=== PATIENT | male | born 1955 | race Caucasian/White ===

== ENCOUNTER 2025-07-10 13:12 | Outpatient (AMB) | payer MEDICARE, SELFPAY ==
--- NOTE | 2025-07-10 13:31 | MHC.OFFVIS ---
Intake Visit Reasons: 6M BET Allergies No Known Allergies Allergy (Verified 07/10/25 13:34) Medication List - Last Reconciled 07/10/25 by Felicia Umana CNP apixaban (Eliquis) 5 mg PO BID ergocalciferol (vitamin D2) 1,250 mcg PO QWEEK escitalopram oxalate 5 mg PO BEDTIME levothyroxine 125 mcg PO DAILY propranolol 10 mg PO BID tamsulosin 0.4 mg PO BEDTIME HPI Comments Details: 69-year-old man with ulcerative colitis s/p total colectomy and s/p iliostomy, DVT, and urinary retention was here for tremor. He denied any h/o alcohol abuse. He has been treated with steroids in the past and hand shaking has been noted since 2022 or before. It was noted more when he used hands. Tremor got better when off steroids.?Because of Eliquis, he could not take primidone and was given propanolol. He was doing okay. Tremor was better with propranolol. No significant functional impairment. No difficulty eating, drinking, or swallowing. [facility] Medical History (Updated 07/10/25 @ 13:34 by Felicia Umana CNP) Tremor Review of Systems Const Denies chills, Denies daytime sleepiness, Denies difficulty sleeping, Denies fatigue, Denies fever(s), Denies frequent falls, Denies headache(s), Denies increased appetite, Denies poor appetite, Denies snoring, Denies weakness, Denies weight gain and Denies weight loss Eyes Denies loss of vision ENT Denies vertigo, Denies dizziness and Denies headache(s) Card Denies chest pain at rest, Denies chest pain with activity, Denies syncope, Denies leg edema and Denies palpitations Resp Denies snoring GI Denies constipation, Denies heartburn, Denies diarrhea and Denies nausea Denies urinary frequency, Denies urinary incontinence and Denies urinary urgency Musc Denies abnormal gait, Denies numbness and Denies tingling Skin/Breast Denies dry skin and Denies rash Neuro Denies abnormal gait, Denies vertigo, Denies dizziness, Denies syncope, Denies frequent falls, Denies headache(s), Denies lack of coordination, Denies loss of vision, Denies memory loss, Denies numbness, Denies restless legs, Denies seizure-like activity, Denies tingling, Denies paresthesias, Reports tremor(s) and Denies weakness Psych Denies anxiety, Denies depression, Denies auditory hallucinations, Denies memory loss, Denies visual hallucinations and Denies suicidal ideation Endo Denies fatigue and Denies palpitations Physical Exam Const Other: General Appearance:? normal, in no acute distress. Skin:? no rashes, no significant birthmarks. Heart:? S1, S2 normal, no murmurs. Lungs:? clear anteriorly and posteriorly. Extremities:? no edema. Psych:? alert, oriented, cognitive function intact, cooperative with exam. Neuro Other: Mental Status:?Normal attention, orientation, memory and affect.? Cranial Nerves:?Pupils are equal, round and reactive to light. External occular muscles are intact. Visual melissa are full. Face is symmetrical. Facial sensations are normal. Tongue is midline. Palate elevates symmetrically. Shoulder shrugging is normal. Hearing to bedside conversation is normal. Motor Examination:?DTRs 1+ Sensory Exam:?....? Coordination:?No ataxia,?no titubation.? Gait Exam: Within normal limits. Cerebellar Signs:?[id number] with bilateral hand tremor. Extrapyramidal System:?No tremor, rigidity with normal facial expressions.? Pronator Drift:?Not present.? Involuntary Movements:?Mod hand postural tremor. Speech:?Normal.? Assessment & Plan Assessment & Plan (1) Benign essential tremor: Code(s): G25.0 - Essential tremor Category: Medical Plan: Continue propranolol 10mg 1 tablet twice a day. Follow up in 6 months or sooner as needed. Coding Level of Care Code Est Pt Level 4 (68834) Diagnoses Benign essential tremor G25.0
--- OUTSIDE RECORDS SUMMARY | 2025-07-10 17:18 | XMS_ITS | Clinical Summary ---
Author Organization [facility] Address [address] [place] [address] Phone Care Team Providers Care Central Supply Assistant Name Role Phone Alanna Segal Primary Care Provider [phone] Allergies No known active allergies Medications levothyroxine (SYNTHROID, LEVOTHROID) 125 MCG tablet Take 125 mcg by mouth 1 (one) time each day Active tamsulosin (FLOMAX) 0.4 MG 24 hr capsule Take 0.4 mg by mouth 1 (one) time each day Active ergocalciferol 1.25 MG (74749 UT) capsule Take 50,000 Units by mouth 1 (one) time per week Active escitalopram (LEXAPRO) 5 MG tablet Take 5 mg by mouth 1 (one) time each day Active apixaban (Eliquis) 5 MG tablet Take 5 mg by mouth in the morning and 5 mg in the evening. Active propantheline (PROBANTHINE) 15 MG tablet Take 10 mg by mouth in the morning and 10 mg at noon and 10 mg in the evening and 10 mg before bedtime. 10mg. Active Active Problems Problem Noted Date Diagnosed Date Stage 3a chronic kidney disease 12/12/2024 Renal stone 06/13/2024 Ulcerative colitis Resolved Problems Problem Noted Date Diagnosed Date Resolved Date Chronic kidney disease 12/12 Encounters Date Type Department Care Team Description 04/29/2025 Orders Only [facility] [address] [place] [address] Yusuf Yadav MD Renal stone; Stage 3a chronic kidney disease (HCC) from Last 3 Months Family History Medical History Relation Comments Heart attack Mother myocardial infarc Sister Relation Status Comments Brother Father Mother Sister Alive Social History Tobacco Use Types Packs/Day Years Used Date Smoking Tobacco: Never Assessed Sex and Gender Information Value Date Recorded Sex Assigned at Not on file Legal Sex Male 6:56 PM EDT Gender Identity Not on file Sexual Orientation Not on file Last Filed Vital Signs Vital Sign Reading Time Taken Comments Blood Pressure 114/72 12/12/2024 1:47 PM EDT Pulse 60 12/12/2024 1:47 PM EDT Temperature - - Respiratory Rate - - Oxygen Saturation - - Inhaled Oxygen Concentration - - Weight 97.5 kg (215 lb) 12/12/2024 1:47 PM EDT Height - - Body Mass Index - - Plan of Treatment Upcoming Encounters Date Type Department Care Team (Late st Contact Info) Description 10/02/2025 2:15 PM EDT Office Visit [facility] [address] [place] [address] Yusuf Yadav MD [address] [phone] Health Maintenance Due Date Last Done Comments Pneumococcal Vaccine: 50+ Ye ars (2 of 2 - PCV) 10/08/2011 10/07/2010 Influenza Vaccine (#1) 2025 Hepatitis B Vaccine Aged Out No longe r eligible based on patient's age to complete this topic Insurance [facility] Care Teams Central Supply Assistant Relationship Specialty Start Date End Date Alanna Segal [address] [place] [address]., [address] [place] [address] [facility] - General 04/12/24
--- OUTSIDE RECORDS SUMMARY | 2025-07-10 17:18 | XMS_ITS ---
Author Organization [facility] Care Team Providers Care Managed Care Liaison Name Role Phone Rajwinder Pacheco Unavailable Unavailable Hailee Ramos Unavailable Unavailable Jonelle Watson Unavailable Unavailable Arlen Briceño Unavailable Unavailable Michelle Smith Unavailable Unavailable Allergies and adverse reactions No Known Allergies Care Team Name Role Address Phone Organization Dates Jonelle Watson PCP [address] [facility] [address], [place], [address], [place] (Office): [facility] 06/08/2023 - 06/29/2023 Rajwinder Pacheco [address] [place] [address], [address], [place] (Office): [facility] 06/08/2023 - 06/29/2023 Hailee Ramos [address], [place], [address], [place] (Office): [facility] 06/08/2023 - 06/29/2023 Arlen Briceño [address], [place], [address], [facility] (Office): [facility] 06/08/2023 - 06/29/2023 Michelle Smith [address] [place], [address], [place] (Office): [facility] 06/08/2023 - 06/29/2023 Immunizations Immunization Status Vaccine Details Vaccine Code CodeSystem Date Notes Influenza completed Influenza, split virus, trivalent, injectable, contains preservative Given 0.5 ml Left Deltoid intramuscularly 141 CVX created date: 06/08/2023 administere d date: 05/11/2023 SARS-COV-2 (COVID-19 BOOSTER) completed SARS-COV-2 (COVID-19) vaccine, mRNA, spike protein, LNP, bivalent, preservative free, 50 mcg/0.5 mL or 25 mcg/0.25 mL dose Given 0.5 ml Left Deltoid intramuscularly 229 CVX created date: 06/08/2023 administere d date: 05/11/2023 Mental Status Section Date Assessment Total Score Description 06/29/2023 BIMS 15 cognitively int act CAM 0 No delirium ind icated PHQ-9 00 06/10/2023 BIMS 15 cognitively int act CAM 0 No delirium ind icated PHQ-9 00 Insurance Providers Coverage Status Coverage Type Relationship to Subscriber Member Identifier Subscriber Identifier Group Identifier Payer Identifier and Other information 2023 Code: 51 Code System OID:[id number] .[id number]. 5 Code System Name: Source of Payment Typology (PHDSC) Display: Managed Care (Private) Translation: Code: HM Code System: OID:[id number] .[id number]. 1336 Code System Name: Insurance Type Code ([id number]) Display Name: Health Maintenance Organization (HMO) Plan Code: SELF Code System Name: HL7 RoleCode Code System OID:[id number] .[id number] Display Name: Self [id number] Root: [id number] Payer Identifier: Root: [id number] Extension: [id number] Payer Name: [facility] Address: [address] [id number] City: [place] State: [place] Country: [place] Code: 81 Code System OID:[id number] .[id number]. 5 Code System Name: Source of Payment Typology (PHDSC) Display: Self Pay Translation: Code: 09 Code System: OID:[id number] .[id number]. 1336 Code System Name: Insurance Type Code ([id number]) Display Name: Self-pay Problems Problem # Description Date of onset Resolved Date Code CodeSystem Concern Status 1 DEPRESSION, UNSPECIFIED 06/08/[address] active 2 ACUTE KIDNEY FAILURE, UNSPECIFIED 06/07/[address] active 3 BACTEREMIA 06/07/[address] active 4 DIFFICULTY IN WALKING, NOT ELSEWHERE CLASSIFIED 06/07/[address] active 5 HISTORY OF FALLING 06/07/[address] active 6 HYPERLIPIDEMIA, UNSPECIFIED 06/07/[address] active 7 HYPOTHYROIDISM, UNSPECIFIED 06/07/[address] active 8 ILEOSTOMY STATUS 06/07/[address] active 9 MUSCLE WEAKNESS (GENERALIZED) 06/07/[address] active 10 OBSTRUCTIVE AND REFLUX UROPATHY, UNSPECIFIED 06/07/[address] active 11 OTHER SPECIFIED DISORDERS OF WHITE BLOOD CELLS 06/07/[address] active 12 OTHER SPECIFIED VIRAL DISEASES 06/07/[address] active 13 RESPIRATORY SYNCYTIAL VIRUS PNEUMONIA 06/07/[address] active 14 RETENTION OF URINE, UNSPECIFIED 06/07/[address] active 15 UNSTEADINESS ON FEET 06/07/[address] active 16 URINARY TRACT INFECTION, SITE NOT SPECIFIED 06/07/[address] active 17 WEAKNESS 06/07/[address] active Reason for Referral No Reasons for Referral Entered Social History Social History Observation Description Start Date End Date Code Code System Current Smoking Status Tobacco smoking consumption unknown 161062070 SNOMED CT Sex Assigned At Male 1955 77061-[address] [facility] Gender Identity Sexual Orientation Vital Signs Code Code System Vitals Name Values and Units Timing Information 9279-[address] [facility] Respiratory Rate Value=16.0 Units=/m in 06/29/2023 8310-[address] [facility] Body Temperature Value=98.1 Units= F 06/29/2023 8462-[address] [facility] Blood Pressure-Diastolic Value=66 Un its=mmHg 06/29/2023 8480-[address] [facility] Blood Pressure-Systolic Fymkg=695 Un its=mmHg 06/29/2023 8867-[address] [facility] Heart rate Value=83.0 Units=/min 01/2023 31700-[address] [facility] Pain Level Value=0.0 06/29/2023 15975-[address] [facility] O2 % dC Oximetry Value=95.0 Units= % 06/29/2023 07877-[address] [facility] Weight Ycqfl=869.0 Units=Lbs 8302-[address] [facility] Height Value=69.0 Units=Inches 06/07/2023
== END 2025-07-10 13:53 | disposition home or self-care (01) ==
LOC: HO.HSM 13:13
PROVIDERS: PCP Internal Medicine; Referring Provider Internal Medicine; Visit Provider Registered Nurse
DX: G25.0 Essential tremor (principal)
CPT/HCPCS: 99214

== ENCOUNTER → 2025-07-10 13:12 | Outpatient (BNVA) | payer MEDICARE, SELFPAY | PROVIDERS: PCP Internal Medicine; Referring Provider Internal Medicine; Visit Provider Registered Nurse | DX: G25.0 Essential tremor (principal); Z79.899 Other long term (current) drug therapy | CPT/HCPCS: 99212 ==